=== PATIENT | female | born 1930 | race Caucasian/White ===

== ENCOUNTER → 2016-08-05 | Outpatient (CLI) | payer MEDICARE, OTHER ==
[~2016-08-05] MED LIST: ALEN70SO PO; AMLO10TA OR; AMLO5TAB2 PO; AMPI50CA PO; ASCO250T PO; ASPI325T PO; ASPI81TA45 OR; ATEN25TA PO; CALC600T62 PO; CALTRATE PO; CARV3.12 PO; CHLO125TA PO; CRAN425C2 PO; DIGO0.12 PO; DIOV160T5 OR; EDARBI PO; ESTRING PV; FISH1000 OR; LIDO5DIS36 TD; LISI10TA4 PO; LUTEIN PO; MAGN250T3 PO; MULTIVIT PO; NAPR500T2 PO; PRESCAP PO; PRESERVISION PO; SPIR25TA2 PO; VITA100037 PO; VITA250T OR; ZEST20TA4 OR; [UNRECOGNIZED DRUG - CODE] IA; [UNRECOGNIZED DRUG - OTHER] PO; [UNRECOGNIZED DRUG - OTHER] PO; [UNRECOGNIZED DRUG - OTHER] PO
--- NOTE | 2016-08-19 00:41 | ECWPNPC ---
PATIENT NAME: CHACHO QUINTANILLA : 1930 GENDER: FEMALE VISIT DATE: 08/05/2016 DISCHARGE DATE: 08/05/16 1419 VISIT LOCKED DATE TIME: PHYSICIAN: KIKA STEWART RESOURCE: KIKA STEWART REASON FOR APPOINTMENT 1. LOW BACK HISTORY OF PRESENT ILLNESS TODAY'S VISIT: NOTES: RATES PAIN LEVEL TO DAY 6 /10 IF STANDING AND WALKING. NOTES SHE IS MORE STIFF. CAN ALTERNATE SIDES.PAIN STAYS RIGHT IN LOW BACK AND SACRUM AND OCCASIONALLY IN THE TOPS OF THE LEGS. NO RECENT FALLS. NO NUMBNESS AND TINGLING IN FEET. HAS BEEN ABLE TO SLEEP WELL GENERALLY. . CURRENT MEDICATIONS TAKING ATENOLOL 25 MG TABLET 1 TABLET ORALLY TWICE A DAY TAKING LISINOPRIL 10 MG TABLET 1 TABLET ORALLY ONCE A DAY TAKING SPIRONOLACTONE 25 MG TABLET 1/2 TABLET ORALLY ONCE A DAY TAKING CHLORTHALIDONE 25 MG TABLET 1/2 TABLET IN THE MORNING ORALLY ONCE A DAY TAKING DIGOXIN 125 MCG TABLET 1 TABLET ORALLY ONCE A DAY TAKING ASPIRIN 325 MG TABLET DELAYED RELEASE 1 TABLET ORALLY ONCE A DAY TAKING LIDODERM 5 % PATCH 1-3 PATCHES TO INACT SKIN EXTERNALLY ONCE DAILY NEEDED, NOTES: HASNT USED IN A WHILE TAKING VITAMIN D 1000 UNIT CAPSULE 1 TABLET ORALLY ONCE DAILY TAKING CALCIUM 600+D 600-400 MG-UNIT TABLET 1 TABLET WITH FOOD ORALLY ONCE DAILY TAKING CRANBERRY 425 MG CAPSULE 1 CAPSULE ORALLY ONCE A DAY TAKING PRESERVISION/LUTEIN 1 CAPSULE 1 CAPSULE ORALLY TWICE A DAY TAKING VITAMIN C 250 MG TABLET 1 TABLET ORALLY ONCE A DAY TAKING MAGNESIUM 250 MG TABLET 1 TABLET WITH A MEAL ORALLY ONCE A DAY TAKING ESTRING 2 MG RING DIRECTED VAGINAL EVERY 6 MONTHS, NOTES: 04/08/16 TAKING NAPROSYN 500 MG TABLET 1 TABLET WITH FOOD ORALLY ONCE OR TWICE A DAY, NOTES: 04/07/16@0800 MEDICATION LIST REVIEWED AND RECONCILED WITH THE PATIENT PAST MEDICAL HISTORY HYPERTENSION 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 GASTROENTEROLOGY: CHRONIC CONSTIPATION . NEUROLOGY: POSITIVE FOR TINGLING ON FINGERS. NO NUMBNESS/TINGLING IN LEGS OT FEET . PULMONOLOGY: POSITIVE FOR, BREATHING PROBLEMS, COUGH, SHORTNESS OF BREATH . VITAL SIGNS WT 105 LBS, HT 59 IN, BMI 21.21 INDEX, BP 111/57 MM HG, HR 72 /MIN, RR 16 /MIN, TEMP 96.8 F, OXYGEN SAT % 98, NA INITIALS TL 1334. EXAMINATION GENERAL EXAMINATION: PSYCHALERT , ORIENTED X 3 , APPROPRIATE MOOD AND AFFECT . LUNGS:CLEAR TO AUSCULTATION BILATERALLY. HEART:HEART RATE REGULAR, NO CAROTID BRUIT. MUSCULOSKELETAL:POINT TENDERNESS OVER BILATERAL SIJ. ABLE TO RISE SLOWLY TO STANDING POSITION - POSTURE STOOPED AND ROTATED. CANE IS USED FOR BALANCE. GAIT RAPID, TILTED, NON ANTALGIC. 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 RECOMMEND REMOVING ALL THROW RUGS. 2. RECOMMEND NIGHT LIGHTS 3. RECOMMEND WEARING RUBBER SOLED SHOES AND TO NOT GO BAREFOOT. 4.. ADVISED TO CHANGE POSITION SLOWLY FROM SUPINE TO STANDING TO AVOID DIZZINESS. 5. ADVISED TO USE ASSISTIVE DEVICE SUCH CANE OR WALKER 6. USE LIFELINE SERVICES OR KEEP PORTABLE PHONE READILY AVAILABLE IN CASE OF FALL. PROCEDURE CODES FA211 ESTABILISHED PATIENT [facility] FAC[facility] CHARGE G2893 BP SCR PRFRM RCMDD DEFIND SCR INTVL G8730 PAIN ASSESS POS TOOL F/U PLAN DOC 3016F PT SCRND UNHLTHY [place] USE 1123F ACP DISCUSS/DSCN MKR DOCD 1036F TOBACCO NON-USER 0518F FALL PLAN OF CARE DOCD G8427 DOC MEDS VERIFIED W/[place] 3288F FALL RISK ASSESSMENT DOCD G8493 BMI<30 AND >=22 CALC & DOCU DISPOSITION & COMMUNICATION FOLLOW UP AFTER INJECTION (REASON: CHECK AUTH FOR MARIANO SIJ) ELECTRONICALLY SIGNED BY HEATHER COLON ON 08/18/2016 AT 03:06 PM EST DISCLAIMER : THIS IS A VISIT SUMMARY EXTRACTED FROM THE [employer] CHART. IT IS NOT A COPY OF THE [employer] PROGRESS NOTE. MARCO ANTONIO
== END ==
LOC: M PAIN 13:20
PROVIDERS: ATTEND Nurse Practitioner Family
DX: Z09 Encounter for follow-up examination after completed treatment for conditions other than malignant neoplasm (principal); G89.29 Other chronic pain; M46.1 Sacroiliitis, not elsewhere classified; M79.1 Myalgia; M47.816 Spondylosis without myelopathy or radiculopathy, lumbar region; M47.817 Spondylosis without myelopathy or radiculopathy, lumbosacral region; I10 Essential (primary) hypertension; I44.2 Atrioventricular block, complete; E11.9 Type 2 diabetes mellitus without complications; M81.0 Age-related osteoporosis without current pathological fracture; E61.2 Magnesium deficiency; E55.9 Vitamin D deficiency, unspecified; Z86.19 Personal history of other infectious and parasitic diseases; Z88.2 Allergy status to sulfonamides; Z79.82 Long term (current) use of aspirin; Z79.899 Other long term (current) drug therapy; Z95.0 Presence of cardiac pacemaker

== ENCOUNTER → 2016-08-30 | Outpatient (CLI) | payer MEDICARE, OTHER ==
[~2016-08-30] MED LIST changes: +BUPIVACAINE HCL 0.25% 30 ML VIAL As Ordered ONE; +ISOVUE-M 300 61% 15ML VIAL (Q9967) As Ordered ONE; +LIDOCAINE 1% SDV INJ 30 ML VIAL As Ordered ONE; +TRIAMCINOLONE ACETONIDE SUSP 40 MG/ML VIAL (J3301) As Ordered ONE; +diazePAM 5 MG TAB As Ordered ONE
--- NOTE | 2016-08-30 14:05 | REP ---
PARTIAL SI JOINT SERIES: Five views. HISTORY: Bilateral SI joint injection for pain. 25 seconds of fluoroscopy time is reported. FINDINGS: A sequence of five fluoroscopically obtained last image hold spot radiographs of the SI joints are present bilaterally documenting various needle positions and contrast injections associated with SI joint injection procedure. Signed by Jacob Ortiz MD 08/30/2016 02:34 P
== END ==
LOC: M PAIN 10:10
PROVIDERS: ATTEND Anesthesiology
DX: G89.29 Other chronic pain (principal); M46.1 Sacroiliitis, not elsewhere classified; I10 Essential (primary) hypertension; E55.9 Vitamin D deficiency, unspecified; M47.816 Spondylosis without myelopathy or radiculopathy, lumbar region; M47.817 Spondylosis without myelopathy or radiculopathy, lumbosacral region; M81.0 Age-related osteoporosis without current pathological fracture; N81.2 Incomplete uterovaginal prolapse; Z88.2 Allergy status to sulfonamides; Z79.82 Long term (current) use of aspirin; Z79.899 Other long term (current) drug therapy; Z95.0 Presence of cardiac pacemaker
CPT/HCPCS: G0260; J3301; Q9967

== ENCOUNTER → 2016-09-20 | Outpatient (CLI) | payer MEDICARE, OTHER ==
[~2016-09-20] MED LIST changes: -BUPIVACAINE HCL 0.25% 30 ML VIAL As Ordered ONE; -ISOVUE-M 300 61% 15ML VIAL (Q9967) As Ordered ONE; -LIDOCAINE 1% SDV INJ 30 ML VIAL As Ordered ONE; -TRIAMCINOLONE ACETONIDE SUSP 40 MG/ML VIAL (J3301) As Ordered ONE; -diazePAM 5 MG TAB As Ordered ONE
--- NOTE | 2016-10-07 02:13 | ECWPNPC ---
PATIENT NAME: CHACHO QUINTANILLA : 1930 GENDER: FEMALE VISIT DATE: 09/20/2016 DISCHARGE DATE: 09/20/16 1046 VISIT LOCKED DATE TIME: PHYSICIAN: KIKA STEWART RESOURCE: KIKA STEWATR REASON FOR APPOINTMENT 1. POST PROCEDURE HISTORY OF PRESENT ILLNESS HISTORY OF PRESENT ILLNESS: PAIN THE PATIENT DESCRIBES THE PAIN... FALL RISK SCREENING: SCREENING :NO FALLS IN THE PAST YEAR TODAY'S VISIT: NOTES: IS S/P BILATERAL SIJ INJECTION ON 08/30/16. RATES PAIN PRIOR 01/03 - LOST INJECTION PAIN DECREASED TO 1-2/10 FOR 2-3 WEEKS. NPTES PAIN IS MORE IN CENTER OF SPINE TODAY. . CURRENT MEDICATIONS TAKING ATENOLOL 25 MG TABLET 1 TABLET ORALLY TWICE A DAY TAKING LISINOPRIL 10 MG TABLET 1 TABLET ORALLY ONCE A DAY TAKING SPIRONOLACTONE 25 MG TABLET 1/2 TABLET ORALLY ONCE A DAY TAKING CHLORTHALIDONE 25 MG TABLET 1/2 TABLET IN THE MORNING ORALLY ONCE A DAY TAKING DIGOXIN 125 MCG TABLET 1 TABLET ORALLY ONCE A DAY TAKING ASPIRIN 325 MG TABLET DELAYED RELEASE 1 TABLET ORALLY ONCE A DAY TAKING LIDODERM 5 % PATCH 1-3 PATCHES TO INACT SKIN EXTERNALLY ONCE DAILY NEEDED TAKING VITAMIN D 1000 UNIT CAPSULE 1 TABLET ORALLY ONCE DAILY TAKING CALCIUM 600+D 600-400 MG-UNIT TABLET 1 TABLET WITH FOOD ORALLY ONCE DAILY TAKING CRANBERRY 425 MG CAPSULE 1 CAPSULE ORALLY ONCE A DAY TAKING PRESERVISION/LUTEIN 1 CAPSULE 1 CAPSULE ORALLY TWICE A DAY TAKING VITAMIN C 250 MG TABLET 1 TABLET ORALLY ONCE A DAY TAKING MAGNESIUM 250 MG TABLET 1 TABLET WITH A MEAL ORALLY ONCE A DAY TAKING ESTRING 2 MG RING DIRECTED VAGINAL EVERY 6 MONTHS TAKING NAPROSYN 500 MG TABLET 1 TABLET WITH FOOD ORALLY TWICE DAILY NEEDED MEDICATION LIST REVIEWED AND RECONCILED WITH THE PATIENT PAST MEDICAL HISTORY HYPERTENSION 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 NO . CHILLS NO . FEVER NO . INFECTION: DO YOU HAVE NEW INFECTIONS? NO . DO YOU HAVE HISTORY OF MRSA? NO . MUSCULOSKELETAL: ANY NEW PATTERNS OF PAIN OR NUMBNESS? NO . GASTROENTEROLOGY: ANY NEW CHANGE IN BOWEL CONTROL? NO . GENITOURINARY: ANY NEW CHANGE IN BLADDER CONTROL? NO . IS THERE A CHANCE YOU COULD BE ? NO . HEMATOLOGY/LYMPH: DO YOU TAKE ANY BLOOD THINNERS? (FOR EXAMPLE- COUMADIN, PLAVIX, AGGRENOX, PLATEL, PRADAXA, OR XARELTO) NO . WHEN WAS YOUR LAST DOSE? DATE: TIME: . NEUROLOGY: HAVE YOU FALLEN IN THE PAST 6 MONTHS? NO . ANY NEW EXTREMITY NUMBNESS OR WEAKNESS? YES, NUMBNESS LEFT FINGERS, HAS BEEN GOING ON FOR QUITE AWHILE. . CARDIOLOGY: DO YOU HAVE A PACEMAKER OR DEFIBRILLATOR? YES, PACEMAKER . RESPIRATORY: HAVE YOU BEEN SICK IN THE PAST WEEK? NO . FEVER NO . FLU LIKE SYMPTOMS? NO . COUGH NO . INTEGUMENTARY: DO YOU HAVE ANY RASHES OR OPEN SORES? NO . ALLERGIC/IMMUNO: ARE YOU ALLERGIC TO SHELLFISH OR IV DYE? NO . ANY NEW ALLERGIES? NO . PSYCHIATRIC: DO YOU HAVE THOUGHTS OF HURTING YOURSELF OR SOMEONE ELSE? NO . ARE YOU ABUSED, NEGLECTED, OR IN AN UNSAFE ENVIRONMENT? NO . ENDOCRINOLOGY: ARE YOU DIABETIC? NO . OTHER: DO YOU NEED ANY PRESCRIPTIONS? NO . IF YES, PLEASE LIST: ____ . ANY NEW PROBLEMS WITH YOUR MEDICATIONS? NO . WHEN DID YOU LAST EAT? ____ . WHEN DID YOU LAST DRINK? ____ . WHAT DID YOU LAST DRINK? ____ . NAME OF PERSON DRIVING YOU HOME? ____ . DO YOU HAVE ANY OTHER QUESTIONS OR CONCERNS YES, WOULD LIKE TO DISCUSS TRACTION . REVIEWED BY: PROVIDER: KIKA HYDE . VITAL SIGNS WT 99.6 LBS, HT 59 IN, BMI 20.11 INDEX, BP 111/56 MM HG, HR 65 /MIN, RR 16 /MIN, TEMP 99.0 F, OXYGEN SAT % 98%, NA INITIALS SC 10:01, REVIEWED BY: AD. EXAMINATION GENERAL EXAMINATION: PSYCHALERT , ORIENTED X 3 , APPROPRIATE MOOD AND AFFECT . LUNGS:CLEAR TO AUSCULTATION BILATERALLY. HEART:HEART RATE REGULAR. MUSCULOSKELETAL:MIN TENDERNESS OVER SIJ. TPI OVER SACRUM. SLOW TO RISE TO STANDING POSITION. POSTURE TWISTED AND STOOPED. CANE USED FOR BALANCE. 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 PROCEDURE CODES FA211 ESTABILISHED PATIENT [facility] CHARGE G8730 PAIN ASSESS POS TOOL F/U PLAN DOC G8427 DOC MEDS VERIFIED W/PT OR RE DISPOSITION & COMMUNICATION FOLLOW UP WILL CALL FOR APPOINTMENT (REASON: OK TO CALL AND SCHEDULE SACRAL ILIAC JOINT INJECTION) ELECTRONICALLY SIGNED BY HEATHER COLON ON 10/04/2016 AT 11:14 AM EDT DISCLAIMER : THIS IS A VISIT SUMMARY EXTRACTED FROM THE [employer] CHART. IT IS NOT A COPY OF THE [email or web address] PROGRESS NOTE. MARCO ANTONIO
== END ==
LOC: M PAIN 09:40
PROVIDERS: ATTEND Nurse Practitioner Family
DX: M46.1 Sacroiliitis, not elsewhere classified (principal); M79.1 Myalgia; M47.816 Spondylosis without myelopathy or radiculopathy, lumbar region; M47.817 Spondylosis without myelopathy or radiculopathy, lumbosacral region; Z79.82 Long term (current) use of aspirin; Z79.899 Other long term (current) drug therapy; Z88.2 Allergy status to sulfonamides; I10 Essential (primary) hypertension; I44.2 Atrioventricular block, complete; E55.9 Vitamin D deficiency, unspecified; E61.2 Magnesium deficiency

== ENCOUNTER → 2016-10-19 | Outpatient (REF) | payer MEDICARE, OTHER ==
[2016-10-19 16:21] LABS: MEAN CORPUSCULAR HEMOGLOBIN 29.6 pg (27.0-33.0); MEAN CORPUSCULAR HGB CONC 31.5 g/dl (32.0-36.5); MEAN CORPUSCULAR VOLUME 93.7 fl (80.0-96.0); RED CELL DISTRIBUTION WIDTH 14.4 % (11.5-14.5); WHITE BLOOD COUNT 7.5 K/mm3 (4.0-10.0)
[2016-10-19 16:26] LABS: ALBUMIN 3.8 GM/DL (3.2-5.2); CALCIUM LEVEL 9.7 MG/DL (8.8-10.2); CREATININE FOR GFR 1.26 MG/DL (0.55-1.02); GLOMERULAR FILTRATION RATE 42.7 (>32); MAGNESIUM LEVEL 2.1 MG/DL (1.8-2.4); PHOSPHORUS LEVEL 3.1 MG/DL (2.5-4.9); POTASSIUM SERUM 4.1 MEQ/L (3.5-5.1)
== END ==
LOC: M LABDRWLA 15:23
PROVIDERS: ATTEND Physician Assistant
DX: I48.0 Paroxysmal atrial fibrillation (principal); I10 Essential (primary) hypertension

== ENCOUNTER → 2017-01-04 | Outpatient (REF) | payer MEDICARE, OTHER ==
[~2017-01-04] MED LIST changes: +AMPI500C9 PO; -AMPI50CA PO; -LIDO5DIS36 TD; +LIDO5DIS41 TD; -NAPR500T2 PO; +NAPR500T3 PO; -VITA100037 PO; +VITA100067 PO
[2017-01-04 15:31] LABS: ALBUMIN 3.7 GM/DL (3.2-5.2); ALBUMIN/GLOBULIN RATIO 1.19 (1.00-1.93); BILIRUBIN,TOTAL 0.4 MG/DL (0.2-1.0); CALCIUM LEVEL 9.7 MG/DL (8.8-10.2); CREATININE FOR GFR 1.29 MG/DL (0.55-1.02); GLOMERULAR FILTRATION RATE 41.5 (>32); POTASSIUM SERUM 4.4 MEQ/L (3.5-5.1); TOTAL PROTEIN 6.8 GM/DL (6.4-8.2)
== END ==
LOC: M SFHCLACO 08:50
PROVIDERS: ATTEND Physician Assistant
DX: I10 Essential (primary) hypertension (principal); E87.6 Hypokalemia; E78.2 Mixed hyperlipidemia; R42 Dizziness and giddiness

== ENCOUNTER → 2017-07-05 | Outpatient (REF) | payer MEDICARE, OTHER ==
[2017-07-05 21:02] LABS: ALBUMIN 3.7 GM/DL (3.2-5.2); ALBUMIN/GLOBULIN RATIO 1.19 (1.00-1.93); ALKALINE PHOSPHATASE 61 U/L (45-117); ALT/SGPT 18 U/L (12-78); ANION GAP 8 MEQ/L (8-16); AST/SGOT 14 U/L (7-37); BILIRUBIN,TOTAL 0.3 MG/DL (0.2-1.0); BLOOD UREA NITROGEN 45 MG/DL (7-18); CALCIUM LEVEL 9.2 MG/DL (8.8-10.2); CARBON DIOXIDE LEVEL 31 MEQ/L (21-32); CHLORIDE LEVEL 103 MEQ/L (98-107); CHOLESTEROL LEVEL 200 MG/DL (<200); CHOLESTEROL RISK RATIO 4.444 (<5); CREATININE FOR GFR 1.24 MG/DL (0.55-1.02); GLOMERULAR FILTRATION RATE 43.4 (>32); GLUCOSE, FASTING 98 MG/DL (83-110); HDL CHOLESTEROL 45 MG/DL (>40); MAGNESIUM LEVEL 2.3 MG/DL (1.8-2.4); NON-HDL-C 155 MG/DL; POTASSIUM SERUM 4.3 MEQ/L (3.5-5.1); SODIUM LEVEL 142 MEQ/L (136-145); TOTAL PROTEIN 6.8 GM/DL (6.4-8.2); TRIGLYCERIDES LEVEL 215 MG/DL (<150)
[2017-07-05 21:04] LABS: TOTAL 25(OH) VITAMIN D 44.5 NG/ML (30.0-100.0)
== END ==
LOC: M SFHCLACO 09:09
DX: I10 Essential (primary) hypertension (principal); E61.2 Magnesium deficiency; E55.9 Vitamin D deficiency, unspecified
CPT/HCPCS: 83735

== ENCOUNTER → 2017-10-20 | Outpatient (REF) | payer MEDICARE, OTHER ==
[2017-10-20 15:12] LABS: HEMATOCRIT 34.7 % (36.0-47.0); HEMOGLOBIN 11.1 g/dl (12.0-15.5); MEAN CORPUSCULAR HEMOGLOBIN 30.6 pg (27.0-33.0); MEAN CORPUSCULAR VOLUME 95.6 fl (80.0-96.0); PLATELET COUNT, AUTOMATED 266 10^3/uL (150-450); RED BLOOD COUNT 3.63 10^6/uL (4.00-5.40); RED CELL DISTRIBUTION WIDTH 12.9 % (11.5-14.5); WHITE BLOOD COUNT 9.6 10^3/uL (4.0-10.0)
[2017-10-20 15:31] LABS: ALBUMIN 3.8 GM/DL (3.2-5.2); ANION GAP 8 MEQ/L (8-16); BLOOD UREA NITROGEN 50 MG/DL (7-18); CALCIUM LEVEL 9.6 MG/DL (8.8-10.2); CARBON DIOXIDE LEVEL 29 MEQ/L (21-32); CHLORIDE LEVEL 104 MEQ/L (98-107); CREATININE FOR GFR 1.45 MG/DL (0.55-1.30); GLOMERULAR FILTRATION RATE 36.2 (>32); GLUCOSE, FASTING 90 MG/DL (70-100); MAGNESIUM LEVEL 2.2 MG/DL (1.8-2.4); PHOSPHORUS LEVEL 3.3 MG/DL (2.5-4.9); POTASSIUM SERUM 4.4 MEQ/L (3.5-5.1); SODIUM LEVEL 141 MEQ/L (136-145)
== END ==
LOC: M LAB REF 15:04
DX: I48.0 Paroxysmal atrial fibrillation (principal); I10 Essential (primary) hypertension
CPT/HCPCS: 83735

== ENCOUNTER → 2018-01-03 | Outpatient (REF) | payer MEDICARE, OTHER ==
[2018-01-03 15:45] LABS: TOTAL 25(OH) VITAMIN D 46.1 NG/ML (30.0-100.0)
[2018-01-03 15:46] LABS: ALBUMIN 3.7 GM/DL (3.2-5.2); ALBUMIN/GLOBULIN RATIO 1.23 (1.00-1.93); ALKALINE PHOSPHATASE 63 U/L (45-117); ALT/SGPT 15 U/L (12-78); ANION GAP 7 MEQ/L (8-16); AST/SGOT 10 U/L (7-37); BILIRUBIN,TOTAL 0.4 MG/DL (0.2-1.0); BLOOD UREA NITROGEN 55 MG/DL (7-18); CALCIUM LEVEL 9.1 MG/DL (8.8-10.2); CARBON DIOXIDE LEVEL 28 MEQ/L (21-32); CHLORIDE LEVEL 107 MEQ/L (98-107); CHOLESTEROL LEVEL 179 MG/DL (<200); CHOLESTEROL RISK RATIO 4.589 (<5); CREATININE FOR GFR 1.53 MG/DL (0.55-1.30); GLUCOSE, FASTING 95 MG/DL (70-100); HDL CHOLESTEROL 39 MG/DL (>40); LDL CHOLESTEROL 106.8 MG/DL (<100); MAGNESIUM LEVEL 2.3 MG/DL (1.8-2.4); NON-HDL-C 140 MG/DL; POTASSIUM SERUM 5.1 MEQ/L (3.5-5.1); SODIUM LEVEL 142 MEQ/L (136-145); TOTAL PROTEIN 6.7 GM/DL (6.4-8.2); TRIGLYCERIDES LEVEL 166 MG/DL (<150)
== END ==
LOC: M SFHCLACO 09:33
DX: I10 Essential (primary) hypertension (principal); E78.2 Mixed hyperlipidemia; E61.2 Magnesium deficiency; E55.9 Vitamin D deficiency, unspecified
CPT/HCPCS: 83735